=== PATIENT | female | born 2005 | race Caucasian/White ===

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

== ENCOUNTER 2024-02-22 10:24 | Emergency (ER) | payer OTHER ==
[~2024-02-22] VITALS: Ht 170.1 cm; Wt 72.6 kg
[~2024-02-22 10:24] MED LIST changes: +BROMFED DM COU118 M2 PO
[2024-02-22] MEDS ORDERED: AVPAK AZITHROM250 M1 PO (10:59)
== END 2024-02-22 11:02 | disposition home or self-care (01) ==
LOC: ED 10:24
DX: J40 Bronchitis, not specified as acute or chronic (principal); Z88.1 Allergy status to other antibiotic agents